=== PATIENT | female | born 2000 | race Caucasian/White ===

== ENCOUNTER 2024-09-26 03:27 | Inpatient (IN) | payer BC ==
[2024-09-26] MEDS ORDERED: Lidocaine 1% 50 ML MDV INJECT PRN (03:44)
[2024-09-26] MEDS ORDERED: Sodium Chloride 0.9% 10 ML Syringe FLUSH PRN (03:44)
[2024-09-26] MEDS ORDERED: Calcium Carbonate 500 MG Tab.Chew PO PRN (03:44)
[2024-09-26] MEDS ORDERED: Nalbuphine 10 MG/1 ML Vial IVPUSH PRN (03:44)
[2024-09-26] MEDS ORDERED: Ondansetron 4 MG/2 ML SDV IVPUSH PRN (03:44)
[2024-09-26] MEDS ORDERED: Oxytocin/0.9 % Sodium Chloride 30 UNIT/500 ML BAG IV SCH (03:45)
[2024-09-26 04:31] LABS: BASOPHILS PERCENT AUTO 0.3 % (0.0-1.0); EOSINOPHILS PERCENT AUTO 0.1 % (0.0-6.0); HEMATOCRIT 35.2 % (37.0-47.0); HEMOGLOBIN 11.9 gm/dl (12.0-16.0); IMMATURE GRAN ABSOLUTE AUTO 0.12 K/mm3 (0.00-0.05); IMMATURE GRAN PERCENT AUTO 0.8 % (0.0-0.4); LYMPHOCYTES ABSOLUTE AUTO 1.3 K/mm3 (1.0-4.8); LYMPHOCYTES PERCENT AUTO 8.6 % (24.0-44.0); MEAN CORPUSCULAR HEMOGLOBIN 29.4 pg (28.0-32.0); MEAN CORPUSCULAR HGB CONC 33.8 g/dl (32.0-36.0); MEAN CORPUSCULAR VOLUME 86.9 fl (83.0-99.0); MEAN PLATELET VOLUME 9.4 fl (9.4-12.3); MONOCYTES ABSOLUTE AUTO 0.9 K/mm3 (0.0-0.8); MONOCYTES PERCENT AUTO 5.6 % (0.0-8.0); NEUTROPHILS PERCENT AUTO 84.6 % (41.0-71.0); PLATELET COUNT,PLT 282 K/mm3 (150-400); RED BLOOD CELL COUNT 4.05 M/mm3 (4.10-5.30); WHITE BLOOD CELL COUNT,WBC 15.34 K/mm3 (3.9-11.3)
[2024-09-26 04:52] LABS: CREATININE 0.6 mg/dL (0.55-1.02); EST CRCL DRUG DOSING (CG) 107.22 mL/min
[2024-09-26 05:10] LABS: URIC ACID 4.2 mg/dL (2.6-6.0)
[2024-09-26] MEDS: Lactated Ringers 1,000 ML IV SCH (06:00)
[2024-09-26] MEDS ORDERED: ePHEDrine 50 MG/ML SDV IVPUSH PRN (06:23)
[2024-09-26] MEDS ORDERED: diphenhydrAMINE 50 MG/ML SDV IVPUSH PRN (06:23)
[2024-09-26 06:40] LABS: CREATININE,URINE RAND 381.4 mg/dL (30.0-125.0); PROTEIN CREATININE RATIO,URINE 159.9 mg/g (0-149)
[2024-09-26] MEDS: Bupivacaine/fentaNYL/NS 100 ML Bag EPIDUR PRN (06:40)
[2024-09-26] MEDS ORDERED: Bupivacaine/fentaNYL/NS 100 ML Bag EPIDUR PRN (06:42)
[2024-09-26] MEDS: fentaNYL 100 MCG/2 ML SDV EPIDUR PRN (06:50)
[2024-09-26] MEDS ORDERED: Bupivacaine 0.25% 10 ML SDV ONE (07:00)
[2024-09-26] MEDS ORDERED: Sodium Chloride 0.9% 10 ML SDV ONE (07:00)
[2024-09-26] MEDS: Acetaminophen 325 MG Tab PO PRN (12:29)
[2024-09-26] MEDS: Oxytocin/0.9 % Sodium Chloride 30 UNIT/500 ML BAG IV SCH (14:10)
[2024-09-26] MEDS ORDERED: Azithromycin 500 MG in Sodium Chloride 0.9% 250 ML IV ONE (18:14)
[2024-09-26] MEDS ORDERED: ceFAZolin 2 GM in Sodium Chloride 0.9% 50 ML IV ONE (18:14)
[2024-09-26] MEDS ORDERED: Metoclopramide 10 MG/2 ML SDV IVPUSH ONE (18:14)
[2024-09-26] MEDS ORDERED: Citric Acid/Sodium Citrate Solution 30 ML Cup PO ONE (18:14)
[2024-09-26] MEDS ORDERED: Docusate Sodium 100 MG Cap PO PRN (23:41)
[2024-09-27] MEDS: Ibuprofen 600 MG Tab PO SCH (06:15)
[2024-09-27] MEDS: Witch Hazel Medicated Pads 40/Jar TOP PRN (06:16)
[2024-09-27] MEDS: Benzocaine/Menthol 20%-0.5% Spray 78 GM Cannister TOP PRN (06:17)
[2024-09-27] MEDS: Acetaminophen 325 MG Tab PO PRN (13:10)
== END 2024-09-28 14:26 | disposition home or self-care (01) | DRG 560 ==
LOC: JD.OBCHECK 03:27 → JD.OB 03:44 → JD.OBCHECK 14:50 → OBSVTOIN 20:31 → JD.OB 20:32
PROVIDERS: ADMIT Obstetrics & Gynecology; ATTEND Obstetrics & Gynecology
PROC: 10907ZC Drainage of Amniotic Fluid, Therapeutic from Products of Conception, Via Natural or Artificial Opening (ICD-10-PCS; principal; 2024-09-26)
PROC: 3E0R3BZ Introduction of Anesthetic Agent into Spinal Canal, Percutaneous Approach (ICD-10-PCS; principal; 2024-09-26)
PROC: 10E0XZZ Delivery of Products of Conception, External Approach (ICD-10-PCS; principal; 2024-09-26)
DX: O48.0 Post-term pregnancy (principal); Z3A.40 40 weeks gestation of pregnancy; Z37.0 Single live birth; Z88.0 Allergy status to penicillin; Z98.890 Other specified postprocedural states; Z79.899 Other long term (current) drug therapy
CPT/HCPCS: 36415; 51701; 51702; 59025; 59409; 82565; 82570; 83615; 84156; 84450; 84460; 84520; 84550; 85025; 86592; 86850; 86900; 86901; A9270-GY; J0665; J3010; J3490; J7120; J7999